=== PATIENT | male | born 1940 ===

== ENCOUNTER → 2017-01-24 | Outpatient (REF) ==
[2017-01-24 15:55] LABS: INR 1.6 (0.8-3.0); PROTHROMBIN TIME 18.5 SECONDS (9.7-12.8)
== END ==
LOC: ZLAB.STJ 15:35
PROVIDERS: Internal Medicine
DX: Z02.89 Encounter for other administrative examinations (principal)

== ENCOUNTER → 2017-01-31 | Outpatient (REF) | LOC: ZLAB.STJ 11:06 → ZLAB.WCH 11:06 | DX: Z02.89 Encounter for other administrative examinations (principal) ==